=== PATIENT | female | born 1945 | race Caucasian/White ===

== ENCOUNTER → 2019-10-27 | Outpatient (CLI) | payer OTHER, MEDICARE ==
[~2019-10-27] MED LIST: ASA5UEC PO; ASPIRIN EC81 M1 PO; AZOR 10-40 MG1 EACH PO; BENICAR HCT 201 EACH PO; BYSTOLIC10 MG PO; CARDIZEM PO; NEXIUM40 MG PO; PRAVASTATIN SOD40 MG PO; SLOW FE 160MG160 MG PO
== END ==
LOC: SJCVC 10:59
DX: I25.10 Atherosclerotic heart disease of native coronary artery without angina pectoris (principal); I65.23 Occlusion and stenosis of bilateral carotid arteries; E78.00 Pure hypercholesterolemia, unspecified; I10 Essential (primary) hypertension; I67.1 Cerebral aneurysm, nonruptured

== ENCOUNTER → 2020-05-02 | Outpatient (CLI) | payer OTHER, MEDICARE | LOC: SJCVCIMAG 06:55 | PROVIDERS: ATTEND Internal Medicine Cardiovascular Disease | DX: I65.23 Occlusion and stenosis of bilateral carotid arteries (principal); I10 Essential (primary) hypertension; E78.5 Hyperlipidemia, unspecified ==

== ENCOUNTER → 2021-01-25 | Outpatient (CLI) | payer OTHER, MEDICARE | LOC: SJCVC 13:54 | PROVIDERS: ATTEND Internal Medicine Cardiovascular Disease | DX: R00.1 Bradycardia, unspecified (principal); I25.10 Atherosclerotic heart disease of native coronary artery without angina pectoris; I65.23 Occlusion and stenosis of bilateral carotid arteries; I10 Essential (primary) hypertension; E78.5 Hyperlipidemia, unspecified; I67.1 Cerebral aneurysm, nonruptured; F41.9 Anxiety disorder, unspecified; F32.9 Major depressive disorder, single episode, unspecified; Z79.899 Other long term (current) drug therapy; Z79.82 Long term (current) use of aspirin; Z88.1 Allergy status to other antibiotic agents; Z88.8 Allergy status to other drugs, medicaments and biological substances; Z88.2 Allergy status to sulfonamides ==